=== PATIENT | male | born 1975 | race Caucasian/White ===

== ENCOUNTER 2017-07-12 07:01 | Observation (INO) | payer OTHER ==
[~2017-07-12] VITALS: Ht 167.6 cm; Wt 77.1 kg
[~2017-07-12 07:01] MED LIST: ASPIR-LOW81 MG PO; BRILINTA90 MG PO; CRESTOR10 MG PO; LISINOPRIL-HCT1 EAC1 PO; LOPRESSOR50 MG PO; NITROSTAT 0.40.4 MG SL; NORVASC 5 MG TAB5 MG PO
[2017-07-12 07:25] LABS: HEMOGLOBIN 14.4 gm/dl (14.0-17.5); RED BLOOD COUNT 4.49 M/UL (4.20-5.50); WHITE BLOOD COUNT 11.2 K/UL (4.5-11.0)
[2017-07-12 07:43] LABS: BUN/CREATININE RATIO 12 (0-10)
[2017-07-12] MEDS ORDERED: ZANTAC150 MG PO (11:07)
[2017-07-13 04:28] LABS: HEMOGLOBIN 13.1 gm/dl (14.0-17.5); RED BLOOD COUNT 4.19 M/UL (4.20-5.50); WHITE BLOOD COUNT 10.8 K/UL (4.5-11.0)
[2017-07-13 05:03] LABS: BUN/CREATININE RATIO 10 (0-10)
== END 2017-07-13 14:00 | disposition home or self-care (01) ==
LOC: ER1 07:01 → MED SURG 4 08:38 → PROG CARE 16:18
PROVIDERS: Emergency Medicine; ADMIT Internal Medicine
DX: I21.4 Non-ST elevation (NSTEMI) myocardial infarction (principal); I25.118 Atherosclerotic heart disease of native coronary artery with other forms of angina pectoris; I25.5 Ischemic cardiomyopathy; I25.2 Old myocardial infarction; I10 Essential (primary) hypertension; E78.5 Hyperlipidemia, unspecified; K21.9 Gastro-esophageal reflux disease without esophagitis; Z86.79 Personal history of other diseases of the circulatory system; Z87.891 Personal history of nicotine dependence; Z79.82 Long term (current) use of aspirin; Z79.02 Long term (current) use of antithrombotics/antiplatelets; Z79.899 Other long term (current) drug therapy; Z95.5 Presence of coronary angioplasty implant and graft
CPT/HCPCS: ECHO; 36415; 51702; 71010; 80048; 80053; 80061; 82550; 82553; 83036; 83735; 83874; 84484; 85025; 85027; 85347; 85610; 85730; 93005; 93306; 96374; 96375; 96376; 99152; 99153; 99285; C1725; C1769; C1874; C1887; C9113; C9600; G0378; J0461; J0583; J1644; J2250; J2270; J7030; J7050; Q9963